=== PATIENT | female | born 1960 | race Caucasian/White ===

== ENCOUNTER 2019-11-26 12:47 | Emergency (ER) | payer SELFPAY ==
[~2019-11-26] VITALS: Ht 160 cm; Wt 54.9 kg
[~2019-11-26 12:47] MED LIST: HYDR-3246 PO; LISI-167 PO
[2019-11-26 12:53] VITALS: BP 190/103
--- NOTE | 2019-11-26 13:33 | NUR ---
ASSISTANT GENERAL MANAGER: PT WALKED BACK FROM LOBBY TO ROOM AT THIS TIME. STEADY UPON AMBULATION. NO ACUTE DISTRESS NOTED.
[2019-11-26] MEDS ORDERED: KETOROLAC 30 MG/1 ML ONE (13:45)
--- NOTE | 2019-11-26 13:51 | NUR ---
PATIENT HERE AFTER SHE FELL AT [facility] 2 DAYS AGO. SHE C/O 11/12 RIGHT WRIST PAIN, 30 MG IM TORADOL GIVEN. PATIENT TAKEN TO XRAY.
[2019-11-26] MEDS ORDERED: KETOROLAC 30 MG/1 ML IM ONE (14:00)
--- NOTE | 2019-11-26 15:25 | NUR ---
PATIENT BACK FROM X-RAY, RESTING COMFORTABLY IN BED, VITAL SIGNS WDL. NO FURTHER NEEDS AT THIS TIME.
--- NOTE | 2019-11-26 15:56 | NUR ---
Patient given discharge instructions and they have confirmed that they understand the instructions. Patient ambulatory with steady gait.
== END 2019-11-26 15:58 | disposition home or self-care (01) ==
LOC: ED 15:47
DX: S39.012A Strain of muscle, fascia and tendon of lower back, initial encounter (principal); S63.501A Unspecified sprain of right wrist, initial encounter; W19.XXXA Unspecified fall, initial encounter; Y93.89 Activity, other specified; Y92.89 Other specified places as the place of occurrence of the external cause; Y99.8 Other external cause status
CPT/HCPCS: 72110; 73110; 96372; 99284; J1885